=== PATIENT | female | born 1985 | race Caucasian/White ===

== ENCOUNTER 2017-05-25 18:33 | Emergency (ER) | payer OTHER ==
[~2017-05-25] VITALS: Ht 162.6 cm; Wt 86.4 kg
--- NOTE | 2017-05-25 18:19 | ED.REPORT ---
[facility]-Medical Clearance Date of Service May 25, 2017 ED Provider: History of Present Illness: 4 months . [facility] appointment this Tuesday at 1015 almost 19 weeks . denies drugs.Going to nursing home, will be there for 1 day. 2 nd . taking prenatals. normal so far. Nursing Notes Stated Complaint: FIT FOR SKILLED NURSING Nursing Notes Reviewed: Yes Allergies: Coded Allergies: No Known Allergies (Unverified , 05/25/17) General Time Seen by Provider: 18:19 Chief Complaint : Other (medical clearance for nursing home) Reason for visit: Clear for shelter facil Present Circumstances: : Police custody Hx Obtained From: Patient Past Medical History Past Medical History Denies: Asthma Past Surgical History eye surgery and breast lump removal Smoking History Former Smoker (quit for ) Social History Alcohol Use: Denies alcohol use Drug Use: Denies drug use Occupation staying with parents, partner is there at parents also. no work or school 05/25/2017 Ambulatory Status Independent Review of Systems Basic Review of Systems Eyes: Vision NL, No discharge Hematologic: No bleeding, No bruising Allergy / Immune: No allergy Physical Exam Initial Vital Signs Vital Signs (First) Date Time Temp Pulse Resp B/P Pulse Ox O2 Delivery O2 Flow Rate FiO2 05/25/17 18:46 37.1 100 17 132/77 Room Air Initial VS: Reviewed, Vital signs normal Head / Eyes: Atraumatic, Normocephalic, PERRL ENT: Mucous membranes moist, Conjunctiva normal, No scleral icterus Neck: Supple, Non-tender, Full range of motion Respiratory: Breath sounds normal, Clear to auscultation, No respiratory distress Cardiovascular: Regular rate & rhythm, Heart sounds normal, Intact distal pulses Abdomen / GI: Soft, Non-tender, No guarding, No rebound, No distention Back: No CVA tenderness Lymphatic: No lymphadenopathy Extremities: Vascular intact, Neuro intact, No swelling, No tenderness Skin: Warm, Dry, No cyanosis Neurologic: Alert, Oriented, Nonfocal Psychiatric: Mood/affect normal, Behavior normal, Normal thought content General/Constitutional: Awake, Alert, No acute distress, Well appearing, Well developed, Well hydrated, Well nourished, Cooperative, Not toxic appearing Respiratory / Chest: Atraumatic, Breath sounds NL, Breath sounds = bilat, No respiratory distress, No rales, No rhonchi, No wheezing Cardiovascular: Heart rate NL, Regular rhythm, Heart sounds NL, No gallop Abdomen: Atraumatic, Soft, Non-tender, No guarding, No rebound Interpretation & Diagnostics Lab Results Interpretation Lab Results Interpretation: urine is negative for u tox, u preg is positive. Re-Eval/Medical Decision Med Decision/Clinical Course 31 year old female presents for clearance for nursing home. Pati reports she is alsmot 19 weeks . Has been seen in OB with an appointment scheduled for this Tuesday at 1015. Blood sugar is 108, urine looks good, no sign of infection of drug use. heart tones are 180's. Per arresting officer, she will be there 1 day. No sign of any urine infection or pre term labor. Discharge & Departure Impression: Primary Impression: Medical clearance for incarceration Additional Impression: Weeks of gestation: 19 weeks Qualified Code: Z3A.19 - 19 weeks gestation of Disposition: Home Patient Instructions: (ED), Diet (GEN), at 15 to 18 Weeks (ED) Additional Instructions: You are medically fit for nursing home.You will get a second mattress. Also the diet, this has an extra snack in the evening. Daily vitamins while there. You will be seen by medical tomorrow if you are still there. Blood sugar is 108 in the ER. Your urine looks good, no sign of infection. Urine tox is negative! heart tones are 180"s. Referrals: Yaya Lee MD (PCP) EDSupervising Provider for APC: Isma Aquino MD copies to: Yaya Lee MD, Sue ARNP May 25, 2017 18:19
[2017-05-25 18:46] VITALS: BP 132/77; PULSE 100; RESP 17
[2017-05-25 19:28] VITALS: BP 132/77; PULSE 100; RESP 17
== END 2017-05-25 19:32 | disposition home or self-care (01) ==
LOC: SED 18:33
DX: Z02.89 Encounter for other administrative examinations (principal); Z3A.19 19 weeks gestation of pregnancy; Z87.891 Personal history of nicotine dependence